=== PATIENT | male | born 1955 | race Hispanic/Latino ===

== ENCOUNTER 2023-12-29 00:47 | Inpatient (IN) | payer MEDICARE ==
[2023-12-29] MEDS ORDERED: Acetaminophen 325 MG TAB PO PRN (06:03)
[2023-12-29] MEDS ORDERED: Morphine 4 MG/ML VIAL SLOW IVP PRN (06:09)
[2023-12-29 08:40] LABS: ALT (SGPT) 41 U/L (8-55); AST (SGOT) 33 U/L (5-34); Alkaline Phosphatase 98 U/L (40-110); Anion Gap 14 mmol/L (10-20); BUN (Urea Nitrogen) 19 mg/dL (8.4-25.7); Bilirubin, Total 1.2 mg/dL (0.2-1.2); CK (CPK) 308 U/L (30-200); Calc. Creatinine Clearance 0 mL/min (70-130); Calcium 9.4 mg/dL (7.8-10.44); Carbon Dioxide 23 mmol/L (23-31); Chloride 110 mmol/L (98-107); Estimated GFR 69; Globulin 2.6 g/dL (2.4-3.5); Glucose 102 mg/dL (80-115); Potassium 4.8 mmol/L (3.5-5.1); Protein, Total 6.6 g/dL (5.8-8.1); Sodium 142 mmol/L (136-145)
[2023-12-29 08:48] LABS: #Basophils 0.08 10x3/uL (0.0-0.2); %Basophils 0.7 % (0.0-1.0); %Eosinophils 2.1 % (0.0-10.0); %Lymphocytes 26.2 % (21.0-51.0); %Monocytes 7.1 % (0.0-10.0); %Neutrophils 63.6 % (42.0-75.0); Hemoglobin 16.7 g/dL (14.0-18.0); Mean Corpuscular HGB CONC 34.1 g/dL (32.0-36.0); Mean Corpuscular Hemoglobin 29.9 pg (27.0-31.0); Mean Corpuscular Volume 87.7 fL (78.0-98.0); Mean Platelet Volume 10.2 fL (7.4-10.4); Platelet Count 256 10x3/uL (130-400); RBC Distribution Width 12.7 % (11.5-14.5); Red Blood Cell (RBC) Count 5.59 mill/uL (4.70-6.10); Troponin I 0.395 ng/mL (< 0.028)
[2023-12-29] MEDS ORDERED: Morphine 2 MG/ML VIAL SLOW IVP PRN (10:08)
[2023-12-29 11:49] LABS: Troponin I 0.378 ng/mL (< 0.028)
[2023-12-29] MEDS ORDERED: Acetaminophen 325 MG TAB ONE ×2 (12:37→19:09)
[2023-12-29] MEDS: Acetaminophen 325 MG TAB PO PRN (12:49)
[2023-12-29 13:33] VITALS: BMI 29.5
[2023-12-29 14:43] LABS: #Basophils 0.08 10x3/uL (0.0-0.2); %Basophils 0.8 % (0.0-1.0); %Eosinophils 1.7 % (0.0-10.0); %Lymphocytes 28.8 % (21.0-51.0); %Monocytes 7.5 % (0.0-10.0); Hematocrit 50.1 % (42.0-52.0); Hemoglobin 17.1 g/dL (14.0-18.0); Mean Corpuscular HGB CONC 34.1 g/dL (32.0-36.0); Mean Corpuscular Hemoglobin 30.3 pg (27.0-31.0); Mean Corpuscular Volume 88.7 fL (78.0-98.0); Mean Platelet Volume 10.1 fL (7.4-10.4); Platelet Count 264 10x3/uL (130-400); RBC Distribution Width 12.5 % (11.5-14.5); Red Blood Cell (RBC) Count 5.65 mill/uL (4.70-6.10)
[2023-12-29 15:05] LABS: ALT (SGPT) 38 U/L (8-55); AST (SGOT) 28 U/L (5-34); Albumin 3.9 g/dL (3.4-4.8); Alkaline Phosphatase 88 U/L (40-110); Anion Gap 11 mmol/L (10-20); BUN (Urea Nitrogen) 17 mg/dL (8.4-25.7); Calc. Creatinine Clearance 103 mL/min (70-130); Calcium 9.1 mg/dL (7.8-10.44); Carbon Dioxide 23 mmol/L (23-31); Chloride 109 mmol/L (98-107); Estimated GFR 97; Globulin 2.3 g/dL (2.4-3.5); Glucose 84 mg/dL (80-115); Potassium 3.9 mmol/L (3.5-5.1); Protein, Total 6.2 g/dL (5.8-8.1); Sodium 139 mmol/L (136-145)
[2023-12-29 15:10] LABS: Troponin I 0.396 ng/mL (< 0.028)
[2023-12-29 15:34] LABS: Bacteria/HPF None Seen HPF (None Seen); Bilirubin Negative (Negative); Blood, Urine Negative (Negative); CAUTI Indications for Culture Dysuria,urgency,freq; Clarity Clear (Clear); Glucose, Urine (Dipstick) Normal (Negative); Ketone, Urine Negative (Negative); Leukocyte Negative Leu/uL (Negative); Nitrite Negative (Negative); Protein, Urine (Dipstick) Negative (Neg-Trace); RBC/HPF 0-3 HPF (0-3); Squamous Epithelial None Seen HPF (0-3); Urobilinogen Normal mg/dL (Less than 2); WBC/HPF 0-3 HPF (0-3)
[2023-12-29 15:35] LABS: Urine Culture Reflex No No
[2023-12-29] MEDS ORDERED: Iopamidol-370 76% 500 ML MDV (1 ML CHARGE) ONE (15:40)
[2023-12-29] MEDS ORDERED: Enoxaparin 60 MG (0.6 mL) SYRINGE ONE (15:41)
[2023-12-29] MEDS ORDERED: Enoxaparin 60 MG (0.6 mL) SYRINGE SC SCH (16:00)
[2023-12-29] MEDS: Enoxaparin 60 MG (0.6 mL) SYRINGE SC SCH (16:11)
[2023-12-29] MEDS ORDERED: Nitroglycerin 2% Ointment 1 INCH/1 GM Packet ONE (19:01)
[2023-12-29] MEDS: Nitroglycerin 2% Ointment 1 INCH/1 GM Packet TOP SCH (19:12)
[2023-12-29] MEDS: Dextrose 5 %-0.45 % NaCl 1,000 ML IV SCH (19:12)
[2023-12-29] MEDS ORDERED: Aspirin 81 mg Enteric Coated Tablet PO SCH (21:00)
[2023-12-29] MEDS ORDERED: Atorvastatin Calcium 40 MG TAB PO SCH (21:00)
[2023-12-29] MEDS ORDERED: Clopidogrel Bisulfate 75 MG TAB PO SCH (21:00)
[2023-12-29] MEDS: Famotidine/PF 20 mg/2ml Vial SLOW IVP SCH (21:39)
[2023-12-29] MEDS: Atorvastatin Calcium 40 MG TAB PO SCH (21:40)
[2023-12-29] MEDS: Clopidogrel Bisulfate 75 MG TAB PO SCH (21:40)
[2023-12-29] MEDS: Aspirin 81 mg Enteric Coated Tablet PO SCH (21:40)
[2023-12-30 04:54] LABS: #Basophils 0.07 10x3/uL (0.0-0.2); %Basophils 0.8 % (0.0-1.0); %Eosinophils 2.2 % (0.0-10.0); %Lymphocytes 31.8 % (21.0-51.0); %Monocytes 7.4 % (0.0-10.0); %Neutrophils 57.7 % (42.0-75.0); Hematocrit 47.4 % (42.0-52.0); Hemoglobin 16.5 g/dL (14.0-18.0); Mean Corpuscular HGB CONC 34.8 g/dL (32.0-36.0); Mean Corpuscular Hemoglobin 30.6 pg (27.0-31.0); Mean Corpuscular Volume 87.9 fL (78.0-98.0); Mean Platelet Volume 10.1 fL (7.4-10.4); Platelet Count 270 10x3/uL (130-400); RBC Distribution Width 12.4 % (11.5-14.5); Red Blood Cell (RBC) Count 5.39 mill/uL (4.70-6.10)
[2023-12-30 05:11] LABS: Anion Gap 13 mmol/L (10-20); BUN (Urea Nitrogen) 17 mg/dL (8.4-25.7); Calc. Creatinine Clearance 102 mL/min (70-130); Calcium 8.7 mg/dL (7.8-10.44); Carbon Dioxide 24 mmol/L (23-31); Cardiac Risk 3.1 (Less than 4.5); Chloride 106 mmol/L (98-107); Cholesterol 128 mg/dl (< 200 Desired); Estimated GFR 96; Glucose 99 mg/dL (80-115); HDL Cholesterol 41 mg/dL (>60 Neg Risk); LDL Cholesterol, Calculated 55 mg/dL; Potassium 3.7 mmol/L (3.5-5.1); Sodium 139 mmol/L (136-145); Triglycerides 161 mg/dL (Less than 150)
[2023-12-30] MEDS: Enoxaparin 60 MG (0.6 mL) SYRINGE SC SCH (05:14)
[2023-12-30] MEDS: Losartan 25 MG TAB PO SCH (09:47)
[2023-12-30] MEDS: NIFEdipine XL 30 MG ER.TAB PO PRN (10:00)
[2023-12-31] MEDS: hydrALAZINE 20 MG/ML VIAL SLOW IVP SCH (01:39)
[2023-12-31 04:17] LABS: #Basophils 0.06 10x3/uL (0.0-0.2); %Basophils 0.7 % (0.0-1.0); %Eosinophils 3.1 % (0.0-10.0); %Lymphocytes 32.1 % (21.0-51.0); %Monocytes 7.5 % (0.0-10.0); %Neutrophils 56.4 % (42.0-75.0); Hematocrit 49.7 % (42.0-52.0); Hemoglobin 17.2 g/dL (14.0-18.0); Mean Corpuscular HGB CONC 34.6 g/dL (32.0-36.0); Mean Corpuscular Hemoglobin 29.6 pg (27.0-31.0); Mean Corpuscular Volume 85.4 fL (78.0-98.0); Mean Platelet Volume 9.9 fL (7.4-10.4); Platelet Count 254 10x3/uL (130-400); RBC Distribution Width 12.5 % (11.5-14.5); Red Blood Cell (RBC) Count 5.82 mill/uL (4.70-6.10)
[2023-12-31 04:37] LABS: Anion Gap 12 mmol/L (10-20); BUN (Urea Nitrogen) 11 mg/dL (8.4-25.7); Calc. Creatinine Clearance 112 mL/min (70-130); Calcium 9.2 mg/dL (7.8-10.44); Carbon Dioxide 22 mmol/L (23-31); Chloride 107 mmol/L (98-107); Estimated GFR 99; Glucose 99 mg/dL (80-115); Potassium 3.2 mmol/L (3.5-5.1); Sodium 138 mmol/L (136-145)
[2023-12-31] MEDS: NIFEdipine XL 30 MG ER.TAB PO SCH (08:19)
[2023-12-31 13:56] VITALS: BP 150/89; TEMP 98.1
== END 2023-12-31 17:19 | disposition home or self-care (01) | DRG 313 ==
LOC: ERS 00:47 → ERHOLD 07:13 → 2SE 20:20 → OBSVTOIN 12-30 16:27
PROVIDERS: ADMIT Internal Medicine; ATTEND Internal Medicine
DX: R07.2 Precordial pain (principal); T63.311A Toxic effect of venom of black widow spider, accidental (unintentional), initial encounter; I10 Essential (primary) hypertension; E78.5 Hyperlipidemia, unspecified; Z79.82 Long term (current) use of aspirin; Z79.84 Long term (current) use of oral hypoglycemic drugs; Z79.899 Other long term (current) drug therapy; Z88.0 Allergy status to penicillin; E11.9 Type 2 diabetes mellitus without complications; I25.10 Atherosclerotic heart disease of native coronary artery without angina pectoris; Z98.49 Cataract extraction status, unspecified eye; Z98.890 Other specified postprocedural states
CPT/HCPCS: 36415; 71045; 71275; 74174; 74176; 80048; 80053; 80061; 81001; 82550; 83880; 84484; 85025; 86141; 93005; 93306; 94760; 96372; 96374; 96375; 96376; G0378; J0360; J1650; J7042; Q9967; S0028

== ENCOUNTER 2024-05-27 10:09 | Outpatient (CLI) | payer MEDICARE | END 2024-05-27 10:10 | disposition home or self-care (01) | LOC: BICRAD 10:09 | PROVIDERS: ATTEND Radiology Radiation Oncology | DX: M19.042 Primary osteoarthritis, left hand (principal); M19.041 Primary osteoarthritis, right hand; I73.9 Peripheral vascular disease, unspecified; I70.90 Unspecified atherosclerosis ==